=== PATIENT | male | born 1995 | race Two or more races ===

== ENCOUNTER 2017-06-13 22:20 | Emergency (ER) | payer MEDICAID ==
[~2017-06-13] VITALS: Ht 167.6 cm; Wt 77.1 kg
[~2017-06-13 22:20] MED LIST: OMEP20CA74 PO
[2017-06-14 01:35] VITALS: BP 123/68
== END 2017-06-14 03:16 | disposition home or self-care (01) ==
LOC: ER 22:22
DX: L02.31 Cutaneous abscess of buttock (principal); F17.210 Nicotine dependence, cigarettes, uncomplicated; F12.10 Cannabis abuse, uncomplicated

== ENCOUNTER 2020-05-05 11:34 | Emergency (ER) | payer MEDICAID, OTHER ==
[~2020-05-05] VITALS: Ht 170.2 cm; Wt 74.8 kg
[2020-05-05 11:44] VITALS: BP 102/47
== END 2020-05-05 13:02 | disposition home or self-care (01) ==
LOC: ER 11:34
DX: S63.91XA Sprain of unspecified part of right wrist and hand, initial encounter (principal); S80.212A Abrasion, left knee, initial encounter; S80.211A Abrasion, right knee, initial encounter; V86.56XA Driver of dirt bike or motor/cross bike injured in nontraffic accident, initial encounter; Y93.89 Activity, other specified; Y92.89 Other specified places as the place of occurrence of the external cause; Y99.8 Other external cause status
CPT/HCPCS: 29125; 73110; 73130

== ENCOUNTER 2025-10-05 12:11 | Emergency (ER) | payer MEDICAID, OTHER ==
[~2025-10-05] VITALS: Ht 170.2 cm; Wt 74.9 kg
[2025-10-05 12:13] VITALS: BP 159/87; PULSE 90; RESP 18; TEMP 98.6; O2SAT 97
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
--- NOTE | 2025-10-05 14:32 | DVH ---
CLINICAL HISTORY: HEADACHE TECHNIQUE: Helical scanning was performed of the head from the skull base to the vertex. Multiplanar reconstructions were performed. This exam was performed according to our departmental dose optimization program. Up-to-date CT equipment and radiation dose reduction techniques are utilized as appropriate. CTDI 52 DLP 826 COMPARISON: None FINDINGS: There is no evidence for acute intracranial hemorrhage, acute ischemic changes, mass, mass effect, or extra-axial fluid collection. There is no hydrocephalus or midline shift. There is no effacement of the cerebral sulci and basal subarachnoid cisterns. The bahena-white matter differentiation is well maintained. The imaged paranasal sinuses demonstrate mild right maxillary sinus mucosal thickening. IMPRESSION: NO ACUTE INTRACRANIAL ABNORMALITY SEEN.
== END 2025-10-05 14:49 | disposition home or self-care (01) ==
LOC: ER 12:11
DX: G44.209 Tension-type headache, unspecified, not intractable (principal); F12.90 Cannabis use, unspecified, uncomplicated; F17.210 Nicotine dependence, cigarettes, uncomplicated
CPT/HCPCS: 70450